=== PATIENT | male | born 1990 | race Caucasian/White ===

== ENCOUNTER 2019-06-13 10:10 | Emergency (ER) | payer OTHER ==
[~2019-06-13] VITALS: Ht 172.7 cm; Wt 88.5 kg
[~2019-06-13 10:10] MED LIST: ADDERALL 20 MG20 M1 PO
[2019-06-13] MEDS ORDERED: CELEXA20 MG PO (10:14)
[2019-06-13 10:38] LABS: ABSOLUTE BASOPHILS 0.1 thou/uL (0.0-0.2); ABSOLUTE EOSINOPHILS 0.1 thou/uL (0.0-0.7); ABSOLUTE LYMPHOCYTES 1.4 thou/uL (0.8-5.3); ABSOLUTE MONOCYTES 0.6 thou/uL (0.0-1.2); ABSOLUTE NEUTROPHILS 8.1 thou/uL (1.6-8.1); BASOPHILS 0.8 %; EOSINOPHILS 1.4 %; HEMATOCRIT 46.6 % (42.0-52.0); LYMPHOCYTES 13.5 %; MCH 29.5 pg (26.0-34.0); MCHC 34.3 g/dL (28.0-37.0); MONOCYTES 5.7 %; MPV 8.1 fl. (7.2-11.1); NUCLEATED RBCS 0 /100WBC; PLATELET COUNT* 366 thou/uL (150-400); POLYS 78.6 %; RBC 5.41 mil/uL (4.50-6.00); RDW-CV 13.2 % (10.5-14.5); WBC 10.4 thou/uL (4.0-11.0)
[2019-06-13 10:53] LABS: CALCIUM 8.8 mg/dL (8.5-10.1); CREATININE 0.9 mg/dL (0.6-1.3); POTASSIUM 3.6 mmol/L (3.5-5.1)
[2019-06-13 10:56] LABS: ACETAMINOPHEN < 2 ug/mL (10-30); ALCOHOL 197 mg/dL (<10); SALICYLATE < 2.8 mg/dL (2.8-20.0)
[2019-06-13 10:58] LABS: ALBUMIN 4.4 g/dL (3.4-5.0); TOTAL BILIRUBIN 0.8 mg/dL (<0.1-1.0); TOTAL PROTEIN 7.9 g/dL (6.4-8.2)
[2019-06-13 11:08] LABS: URINE BILIRUBIN NEGATIVE (Negative); URINE BLOOD NEGATIVE (Negative); URINE CLARITY CLEAR; URINE COLOR YELLOW; URINE GLUCOSE-RANDOM NEGATIVE (Negative); URINE KETONES NEGATIVE (Negative); URINE LEUKOCYTES-REFLEX NEGATIVE (Negative); URINE NITRITE-REFLEX NEGATIVE (Negative); URINE PROTEIN NEGATIVE (Negative); URINE SPECIFIC GRAVITY <= 1.005 (1.005-1.030); URINE UROBILINOGEN 0.2 E.U./dl (0.2-1.0)
[2019-06-13 11:10] LABS: AMP/METHAMP POSITIVE (Negative); BARBITURATES Negative (Negative); BENZODIAZEPINES Negative (Negative); COCAINE Negative (Negative); METHADONE Negative (Negative); OPIATES Negative (Negative); PCP Negative (Negative); THC Negative (Negative)
[2019-06-13 11:26] VITALS: BP 153/99
== END 2019-06-13 11:30 ==
LOC: M.ERS 10:10
PROVIDERS: Emergency Medicine Emergency Medical Services
DX: F41.0 Panic disorder [episodic paroxysmal anxiety] (principal); F90.9 Attention-deficit hyperactivity disorder, unspecified type

== ENCOUNTER 2021-05-15 21:32 | Emergency (ER) | payer OTHER ==
[~2021-05-15] VITALS: Ht 172.7 cm; Wt 90.7 kg
[~2021-05-15 21:32] MED LIST changes: +CELEXA20 MG PO
[2021-05-15 21:40] VITALS: BP 140/85
[2021-05-15] MEDS ORDERED: DESYREL150 MG PO (21:42)
== END 2021-05-15 22:21 | disposition left against medical advice (07) ==
LOC: M.ERS 21:32
DX: Z53.21 Procedure and treatment not carried out due to patient leaving prior to being seen by health care provider (principal)